=== PATIENT | female | born 1965 | race Caucasian/White ===

== ENCOUNTER 2024-08-03 09:02 | Emergency (ER) | payer BC, SELFPAY ==
[2024-08-03 09:28] VITALS: BP 104/80
--- NOTE | 2024-08-03 10:59 | ED.GENMED ---
History of Present Illness
General
Chief Complaint: Musculo-Skeletal Complaint
Source: patient
Exam Limitations: none
Time Seen by Provider: 08/03/24 10:36
History of Present Illness
History of Present Illness:
58yoF with a history of urge incontinence presenting for evaluation of back pain. Patient was in yoga 6 days ago and felt like she pulled something the wrong way. She has been having intermittent pain since that time. Her pain started to become
severe today. Pain is located in the right lower back and buttock area and radiates to the lateral thigh. Pain is worse lying flat and improves with bending forward. She has tried ice, heat, and naproxen with mild improvement. She has baseline
urge incontinence but denies any worsening symptoms. No saddle anesthesia, fevers, abdominal pain. No prior back surgeries.
Phy Exam
General Physical Exam
General Presentation: well appearing and no apparent distress
General age: appears stated age
General Skin: warm and dry
General Habitus: normal
General Mental: alert
ENT Exam
ENT Exam: normocephalic
Pulmonary Exam
Pulmonary Exam: no respiratory distress
Neurological Exam
Neurological Exam: alert and no motor deficits (5/5 strength in bilateral lower extremities)
Benson Coma Scale
Eye Opening: Spontaneous
Verbal Response: Oriented
Motor Response: Obeys Commands
GCS Total Score: 15
Musculoskeletal Exam
Musculoskeletal Exam: other (+Tenderness to the R buttock area. No midline spinous process tenderness. No skin changes. )
Skin Exam
Skin Exam: normal color and warm/dry
Psychiatric Exam
Psychiatric Exam: normal mood/affect
Course
Orders/Labs/Results
Orders:
Orders
08/03/24 10:57
Acetaminophen [Tylenol] 1,000 mg PO NOW STA
Ketorolac [Toradol] 30 mg IM NOW STA
Hip, Right 2-3 Views [CR Hip - RT w/wo Pel 2-3 Vw*] Urgent
Comment:
Reason For Exam: R hip pain
Include a pelvis x-ray?: Yes
Lumbar Spine Complete, 4 View [CR Lumbar Spine Comp Min 4 Vw*] Urgent
Comment:
Reason For Exam: low back pain
08/03/24 10:58
Lidocaine [Lidocaine 4% Patch] 1 patch TOPICAL ONCE ONE
Apply Lidocaine patch(s) to:: R back
08/03/24 13:00
Lidocaine [Lidocaine 4% Patch] 1 patch TOPICAL DAILY
Apply Lidocaine patch(s) to:: back
Vital Signs
Initial and Last Documented VS:
Initial Vital Signs
Temp Pulse Resp BP Pulse Ox
97.5 F 73 18 104/80 100
08/03/24 09:28 08/03/24 09:28 08/03/24 09:28 08/03/24 09:28 08/03/24 09:28
Last Documented Vital Signs
Temp Pulse Resp BP Pulse Ox
98.7 F 82 18 131/76 100
08/03/24 12:44 08/03/24 12:44 08/03/24 12:44 08/03/24 12:44 08/03/24 12:44
MDM/Problems Addressed
Differential Diagnosis Includes:
58yoF here with R lower back pain. Started about a week ago after yoga, worsening today. Radiates to buttock and lateral thigh. Better with bending forward. Baseline urge incontinence which is unchanged. No fevers or saddle anesthesia. VSS. No skin
changes noted on exam and 5/5 strength in lower extremities. Differential diagnosis includes but is not limited to: sciatica, lumbar radiculopathy, osteoarthritis, less likely fracture
Initial ED plan: Check lumbar spine and R hip x-rays. IM Toradol, Tylenol, and lidocaine patches for symptoms.
*Critical Care Note
Total Time (30-74mins, 75-104mins- exclusive of procedures): Not Applicable
Update Note
Update Note:
X-rays show facet hypertrophy and moderate arthritis of R hip. Pain improved on reassessment and she is requesting discharge. Will trial course of prednisone. She is from [place] and was advised to f/u with orthopedics when she returns home
tomorrow. ED return precautions discussed. Patient discharged in stable condition.
ED Attending Note
-
Portions of this chart may have been created with voice recognition software.� Occasional wrong word or��sound alike� substitutions may have occurred due to the inherent limitations of voice recognition software.
Discharge Plan
Departure
Patient Disposition: Home (Routine Discharge)
Date of Disposition: 08/03/24
Time of Disposition: 12:44
Patient with high blood pressure during this ER visit?: No
Discharge Problem:
Lumbar radiculopathy
Instructions: Radiculopathy of the neck and back (including sciatica) - Discharge instructions
Prescriptions:
New
prednisone 50 mg tablet
50 mg PO DAILY Qty: 5 0RF
Referrals:
Emma Max MD [Family Provider] -
Activity Restrictions/Additional Instructions:
Take prednisone as prescribed. Continue taking naproxen twice a day as needed. Use lidocaine patches daily (12 hours on, 12 hours off). You may also take Tylenol 650mg every 6 hours as needed.
Please call tomorrow to schedule a follow-up appointment with your family doctor and orthopedics. Return to the ER with any new or worsening symptoms.
Interventions
Interventions:
*Risk Screen - Suicide Last Done: 08/03/24 09:28
*General Assessment Last Done: 08/03/24 09:28
*Neglect/Abuse Screening Last Done: 08/03/24 09:28
ED- Fall Risk Assessment Last Done: 08/03/24 11:06
*Nursing Disposition Last Done: 08/03/24 13:05
ED-Musculoskeletal Assessment Last Done: 08/03/24 11:06
Discharge Date and Time
Discharge Date/Time: 08/03/24 13:05
Print Language: UKRAINIAN
[2024-08-03] MEDS: TYLENOL 1000 MG PO (11:21)
[2024-08-03] MEDS: LIDOCAINE 4% PATCH 1 PATCH TOPICAL ×2 (11:21→12:54)
[2024-08-03] MEDS: TORADOL 30 MG IM (11:22)
[2024-08-03 12:44] VITALS: BP 131/76
== END 2024-08-03 13:05 | disposition home or self-care (01) ==
LOC: EMR 09:02
PROVIDERS: EMERGENCY PHYSICIAN Emergency Medicine; FAMILY PHYSICIAN Internal Medicine
DX: M51.16 Intervertebral disc disorders with radiculopathy, lumbar region (principal); M16.11 Unilateral primary osteoarthritis, right hip; M79.651 Pain in right thigh; N39.41 Urge incontinence; X50.9XXA Other and unspecified overexertion or strenuous movements or postures, initial encounter; Y93.42 Activity, yoga; Z88.0 Allergy status to penicillin
CPT/HCPCS: 99284; 96372; 72110; 73502